=== PATIENT | male | born 1995 | race Hispanic/Latino ===

== ENCOUNTER 2017-05-10 02:24 | Emergency (ER) | payer OTHER ==
[2017-05-10] MEDS: AUGMENTIN 875 MG TAB PO (03:15)
== END 2017-05-10 03:25 | disposition home or self-care (01) ==
LOC: M ED 02:24
DX: J02.9 Acute pharyngitis, unspecified (principal); F17.210 Nicotine dependence, cigarettes, uncomplicated
CPT/HCPCS: 99282

== ENCOUNTER 2017-05-26 20:16 | Inpatient (IN) | payer OTHER ==
[2017-05-26 21:05] LABS: HEMATOCRIT 45.9 % (42.0-52.0); HEMOGLOBIN 16.5 g/dl (14.0-18.0); MEAN CORPUSCULAR HEMOGLOBIN 31.8 pg (27.0-33.0); MEAN CORPUSCULAR HGB CONC 35.9 g/dl (32.0-36.5); MEAN CORPUSCULAR VOLUME 88.4 fl (80.0-96.0); PLATELET COUNT, AUTOMATED 261 10^3/uL (150-450); RED BLOOD COUNT 5.19 10^6/uL (4.30-6.10); RED CELL DISTRIBUTION WIDTH 11.9 % (11.5-14.5); WHITE BLOOD COUNT 10.4 10^3/uL (4.0-10.0)
[2017-05-26 21:22] LABS: AMPHETAMINES LEVEL URINE NEGATIVE (NEGATIVE); BARBITURATES URINE NEGATIVE (NEGATIVE); BENZODIAZEPINES URINE NEGATIVE (NEGATIVE); CANNABINOIDS URINE NEGATIVE (NEGATIVE); COCAINE METABOLITE URINE NEGATIVE (NEGATIVE); METHADONE URINE NEGATIVE (NEGATIVE); OPIATES URINE NEGATIVE (NEGATIVE); PHENCYCLIDINE URINE NEGATIVE (NEGATIVE)
[2017-05-26 21:33] LABS: ALBUMIN 4.2 GM/DL (3.2-5.2); ALBUMIN/GLOBULIN RATIO 1.14 (1.00-1.93); ALKALINE PHOSPHATASE 95 U/L (45-117); ALT/SGPT 29 U/L (12-78); ANION GAP 11 MEQ/L (8-16); AST/SGOT 18 U/L (7-37); BILIRUBIN,DIRECT 0.2 MG/DL (0.0-0.2); BILIRUBIN,TOTAL 0.5 MG/DL (0.2-1.0); BLOOD UREA NITROGEN 14 MG/DL (7-18); CALCIUM LEVEL 9.1 MG/DL (8.5-10.1); CARBON DIOXIDE LEVEL 23 MEQ/L (21-32); CHLORIDE LEVEL 106 MEQ/L (98-107); CREATININE FOR GFR 1.14 MG/DL (0.70-1.30); ETHYL ALCOHOL (ETHANOL) < 0.003 % (0.000-0.010); GLOMERULAR FILTRATION RATE > 60.0 (>60); GLUCOSE, FASTING 129 MG/DL (70-100); POTASSIUM SERUM 3.9 MEQ/L (3.5-5.1); SALICYLATE LEVEL < 1.7 MG/DL (5.0-30.0); SODIUM LEVEL 140 MEQ/L (136-145); TOTAL PROTEIN 7.9 GM/DL (6.4-8.2)
[2017-05-26 21:36] LABS: ACETAMINOPHEN LEVEL < 2.0 UG/ML (10.0-30.0)
[2017-05-26] MEDS ORDERED: MAALOX 30 ML SUSP *UDC PO (22:00)
[2017-05-26] MEDS ORDERED: ACETAMINOPHEN TAB 650MG DOSE (2X325MG) PO (22:00)
[2017-05-26] MEDS ORDERED: MOM 30ML SUSPENSION UDC PO (22:00)
[2017-05-27] MEDS: INFLUENZA QUADRIVALENT PF VACCINE 0.5ML SYRINGE (90686) IM (08:57)
[2017-05-27] MEDS: NICOTINE 21MG/24HR 1 EA TRANSDERMAL TD (17:48)
[2017-05-28 07:08] LABS: HEMATOCRIT 44.8 % (42.0-52.0); HEMOGLOBIN 15.7 g/dl (14.0-18.0); MEAN CORPUSCULAR HEMOGLOBIN 31.3 pg (27.0-33.0); MEAN CORPUSCULAR VOLUME 89.2 fl (80.0-96.0); PLATELET COUNT, AUTOMATED 247 10^3/uL (150-450); RED BLOOD COUNT 5.02 10^6/uL (4.30-6.10); WHITE BLOOD COUNT 9.3 10^3/uL (4.0-10.0)
[2017-05-28] MEDS: NICOTINE 21MG/24HR 1 EA TRANSDERMAL TD (08:58)
[2017-05-28] MEDS: PARoxetine 12.5 MG **CR** TAB PO (09:00)
[2017-05-28] MEDS ORDERED: hydrOXYzine 50 MG TAB PO (19:15)
[2017-05-29] MEDS: NICOTINE 21MG/24HR 1 EA TRANSDERMAL TD (09:00)
[2017-05-29] MEDS: PARoxetine 12.5 MG **CR** TAB PO (09:20)
[2017-05-30] MEDS: PARoxetine 12.5 MG **CR** TAB PO (08:26)
[2017-05-30] MEDS: NICOTINE 21MG/24HR 1 EA TRANSDERMAL TD (08:26)
[2017-05-30] MEDS: traZODone 50 MG TAB PO (23:31)
[2017-05-31] MEDS: PARoxetine 12.5 MG **CR** TAB PO (08:32)
[2017-05-31] MEDS: NICOTINE 21MG/24HR 1 EA TRANSDERMAL TD (09:00)
[2017-06-01] MEDS: NICOTINE 21MG/24HR 1 EA TRANSDERMAL TD (08:40)
[2017-06-01] MEDS: PARoxetine 12.5 MG **CR** TAB PO (08:40)
== END 2017-06-01 14:10 | disposition home or self-care (01) | DRG 881 ==
LOC: M ED 20:16 → M ED INP 21:50 → M PSY 22:52
DX: F43.21 Adjustment disorder with depressed mood (principal); F17.210 Nicotine dependence, cigarettes, uncomplicated